=== PATIENT | male | born 1940 | race Caucasian/White ===

== ENCOUNTER → 2023-12-01 | Outpatient (CLI) | payer MEDICARE, OTHER ==
[~2023-12-01] MED LIST: /AUGM875TA OR; ACET65TA OR; AMLO10TAB OR; AMLO1TAB25 PO; ASPI81TA83 OR; ATOR1TAB21 PO; CHLO125TA PO; COLA50CA3 PO; ECOT81TA5 PO; FLOM0.4C39 PO; LISI20TA33 PO; OMEP40CA4 PO; SIMV10TA2 PO; VYTO10TA5 OR
[2023-12-01 11:51] LABS: THYROID STIMULATING HORMONE 2.066 uIU/ML (0.55-4.78)
[2023-12-01 11:56] LABS: FOLATE 14.4 NG/ML (>5.4)
== END ==
LOC: M LAB 10:40
PROVIDERS: ATTEND Psychiatry & Neurology Neurology
DX: R41.3 Other amnesia (principal); D51.9 Vitamin B12 deficiency anemia, unspecified; E51.9 Thiamine deficiency, unspecified; E53.1 Pyridoxine deficiency; E56.0 Deficiency of vitamin E

== ENCOUNTER 2024-04-01 09:52 | Day surgery (SDC) | payer MEDICARE, OTHER ==
[~2024-04-01] VITALS: Ht 167.6 cm; Wt 90.4 kg
[~2024-04-01 09:52] MED LIST changes: +DONE-1 PO; +LISI40TA4 PO; +LR 1,000 ML IV SCH; +METO1TAB32 PO; +MIDAZOLAM INJ 2MG/2ML VIAL As Ordered ONE; +OMEP-173 PO; +TRAZ-252 PO
[2024-04-01] MEDS: TETRACAINE 0.5% OPHTH SOLN 4ML OD SCH (11:02)
[2024-04-01] MEDS: PHENYLEPHRINE 2.5% OPHTH SOL 2ML OD SCH (11:02)
[2024-04-01] MEDS: FLURBIPROFEN 0.03% OPHTH SOLN 2.5 ML OD SCH (11:02)
[2024-04-01] MEDS: ATROPINE SULFATE 1% OPHTH SOLN 2ML BTL OD SCH (11:02)
[2024-04-01] MEDS: LIDOCAINE 1% SDV 5ML VIAL As Ordered ONE (12:19)
[2024-04-01] MEDS: CEFUROXIME 1MG/0.1ML INTRACAMERAL INJ As Ordered ONE (12:24)
[2024-04-01 12:39] VITALS: BP 191/93; TEMP 97.3; O2SAT 94
== END 2024-04-01 13:06 | disposition home or self-care (01) ==
LOC: M SDC 09:52
PROVIDERS: ATTEND Ophthalmology
DX: H25.11 Age-related nuclear cataract, right eye (principal); I10 Essential (primary) hypertension; E78.5 Hyperlipidemia, unspecified; K21.9 Gastro-esophageal reflux disease without esophagitis; F03.90 Unspecified dementia, unspecified severity, without behavioral disturbance, psychotic disturbance, mood disturbance, and anxiety; Z79.899 Other long term (current) drug therapy; Z79.82 Long term (current) use of aspirin
CPT/HCPCS: 66984; J0697; J2250; V2632